=== PATIENT | male | born 1940 | race Caucasian/White ===

== ENCOUNTER 2017-03-15 14:11 | Emergency (ER) | payer MEDICARE ==
[2017-03-15 14:27] VITALS: BP 146/80
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
== END 2017-03-15 15:11 | disposition home or self-care (01) ==
LOC: UCEAST 14:11
DX: T24.032A Burn of unspecified degree of left lower leg, initial encounter (principal); X19.XXXA Contact with other heat and hot substances, initial encounter; Y93.9 Activity, unspecified; Y92.9 Unspecified place or not applicable; Y99.9 Unspecified external cause status
CPT/HCPCS: 99212; G0463